=== PATIENT | male | born 1975 | race American Indian/Alaskan Native ===

== ENCOUNTER 2020-09-17 19:47 | Emergency (ER) | payer BC, OTHER ==
[~2020-09-17] VITALS: Ht 175.3 cm; Wt 83.9 kg
[~2020-09-17 19:47] MED LIST: PERCOCET 7.5-31 EACH PO
--- NOTE | 2020-09-18 18:33 | EKG ---
[facility] [address] [facility] [place] [address] Signed Sinus bradycardia Otherwise normal ECG No previous ECGs available Confirmed by ARNEL CHRISTIANSON MD ([id number]) on 09/18/2020 6:33:06 PM Electronically Signed By: ARNEL CHRISTIANSON MD 09/18/20 183 PATIENT NAME: ALVIN NGUYEN Electrocardiogram DATE OF : 77 PHYSICIAN: ARNEL CHRISTIANSON MD REPORT #: [id number] REPORT IS CONFIDENTIAL AND NOT TO BE RELEASED WITHOUT AUTHORIZATION
== END 2020-09-17 23:15 | disposition home or self-care (01) ==
LOC: ED 19:47
DX: S80.02XA Contusion of left knee, initial encounter (principal); R55 Syncope and collapse; W18.30XA Fall on same level, unspecified, initial encounter; Y99.0 Civilian activity done for income or pay
CPT/HCPCS: 73560; 80048; 81001; 85025; 93005; 93010; 99284-25; J7030

== ENCOUNTER 2021-07-16 17:26 | Emergency (ER) | payer BC, OTHER ==
[~2021-07-16] VITALS: Ht 175.3 cm; Wt 81.6 kg
== END 2021-07-17 00:09 | disposition home or self-care (01) ==
LOC: ED 17:26
DX: M79.89 Other specified soft tissue disorders (principal); R59.0 Localized enlarged lymph nodes; Z88.5 Allergy status to narcotic agent
CPT/HCPCS: 36415; 72193; 80053; 81001; 85025; 93926; 93971; 99284-25; Q9967

== ENCOUNTER 2022-03-13 13:56 | Inpatient (IN) | payer BC, OTHER ==
[~2022-03-13] VITALS: Ht 175.3 cm; Wt 80.4 kg
--- NOTE | 2022-03-13 21:00 | NUR ---
PATIENT ARRIVED TO THE FLOOR. PATIENT ASSISTED TO THE BED FROM THE STRETCHER A SBA. PATIENT RATES PAIN AT A 2/10 AND DENIES THE NEED FOR MEDICATION AT THIS TIME. PATIENTS IV INFUSING PER ORDER. PATIENTS VITALS TAKEN AND RECORDED. PATIENTS ADMISSION BEING COMPLETED BY PHARMACEUTICAL SALESPERSON.
--- NOTE | 2022-03-13 21:34 | NUR ---
PATIENT ASSESMENT COMPLETED. PM MEDS GIVEN PER ORDER. FAMILY IN ROOM. PATIENT IS EATING AT THIS TIME. REDNESS OUTLINED ON LEFT UPPER THIGH, AND IS WARM TO THE TOUCH. NO FURTHER NEEDS NOTED. CALL LIGHT IN REACH.
--- NOTE | 2022-03-14 00:15 | NUR ---
PATIENT IS RESTING IN BED WITH EYES CLOSED, RR 16. CALL LIGHT IN REACH. IV INFUSING PER ORDER. PATIENT S/O ASLEEP ON THE COUCH.
--- NOTE | 2022-03-14 02:15 | NUR ---
PATIENTS VITALS TAKEN AND RECORDED. INTAKE AND OUTPUT RECORDED. PATIENTS SCHEDULED MEDS GIVEN PER ORDER. PATIENT DENIES ANY PAIN. NO NEEDS NOTED. CALL LIGHT IN REACH.
--- NOTE | 2022-03-14 04:00 | NUR ---
PATIENT IS RESTING IN BED WITH EYES CLSOED, RR 19. CALL LIGHT IN REACH. S/O ASLEEP ON THE COUCH. IV INFUSING PER ORDER.
--- NOTE | 2022-03-14 04:53 | NUR ---
PATIENT ASSISTED TO THE RESTROOM A 1PA. PATIENT ABLE TO VOID. PATIENT IS BACK IN BED RESTING. PATIENT RATES PAIN IN LEFT THIGH 9/10, PRN MEDS GIVEN PER ORDER. IV INFUSING PER ORDER. PATIENTS VITALS TAKEN AND RECORDED. INTAKE AND OUTPUT RECORDED. FRESH ICE WATER PROVIDED. NO FURTHER NEEDS NOTED.
--- NOTE | 2022-03-14 06:23 | NUR ---
PATIENT RESTING IN BED WITH EYES CLOSED, RR 16. CALL LIGHT IN REACH.
--- NOTE | 2022-03-14 06:55 | NUR ---
BEDSIDE HANDOFF REPORT RECEIVED ROM INSURANCE ATTORNEY RN. PT RESTIN GIN BED. PT DENIES NEEDS AT THIS TIME.
--- NOTE | 2022-03-14 08:00 | NUR ---
PT RESTING IN BED. PT ON ROOM AIR, LUNG SOUNDS CLEAR, DENIES SOB. PT SBA TO BATHROOM, VOIDING QS. IV FLUIDS INFUSING LR AT 75, VANCO INFUSION STARTED. PT WITH REDNESS TO LEFT THIGH, HAS NOT EXTENDED PAST OUTLINE, PT STATES INDURATION ON POSTERIOR THIGH HAS IMPROVED. PT DENIES NEED FOR PAIN MEDICATION AT THIS TIME. BOWEL TONES ACTIVE, DENIES NAUSEA. CMS INTACT, WITHOUT LOWER LEG SWELLING. DISCUSSED PLAN OF CARE FOR THE DAY, PT DENIES OTHER NEEDS AT THIS TIME.
--- NOTE | 2022-03-14 08:44 | NUR ---
Pt in bed this am. Spouse in room, INDP in room. Patient has no other requests at this time. Call light within reach.
--- NOTE | 2022-03-14 10:10 | NUR ---
PT REQUESTING PAIN MEDICATION FRO PAIN 77/10 IN LEFT THIGH, GIVEN MOTRIN AND TYLENOL PER ORDER. PT DENIES OTHER NEEDS AT THIS TIME.
--- NOTE | 2022-03-14 12:36 | NUR ---
MED REC COMPLETE - PT NOT CURRENTLY ON ANY MEDS AT HOME
--- NOTE | 2022-03-14 15:10 | NUR ---
PT REPORTED TO DR. CHRISTIANSON NAUSEA AFTER ANTIBIOTICS, GIVEN 4MG IV ZOFRAN. ENSURE PROVIDED. PT REQUESTING TO SLEEP. PT DENIES OTHER NEEDS AT THIS TIME.
--- NOTE | 2022-03-14 16:18 | NUR ---
IV VANCO INFUSION STARTED. PT STATES PAIN IS TOELRABLE AT THIS TIME. PT DENIES OTHER NEEDS AT THIS TIME.
--- NOTE | 2022-03-14 18:44 | NUR ---
PATIENT GIVEN ONE TYLENOL AND ONE IBUPROFEN FOR 8/20 LEFT THIGH PAIN.
--- NOTE | 2022-03-14 19:48 | NUR ---
RECEIVED REPORT FROM DAY SHIFT RN. PATIENT IS RESTING IN BED WATCHING TV. PATIENT DENIES ANY NEEDS. CALL LIGHT IN REACH.
--- NOTE | 2022-03-14 22:00 | NUR ---
PATIENT ASSESMENT COMPLETED. PATIENTS VITALS TAKEN AND RECORDED. INTAKE AND OUTPUT RECORDED. PATIENT RATES PAIN AT A 1/10 AND DENIES THE NEED FOR INTERVENTION AT THIS TIME. PATIENTS PM MEDS GIVEN PER ORDER. PATIENTS IV FLUSHED AND SL PER ORDER. PATIENT DENIES ANY FURTHER NEEDS. PATIENTS LEFT UPPER THIGH REMAINS RED AND WARM TO THE TOUCH. A NEW OUTLINE MADE WHERE REDNESS HAS SPREAD. CALL LIGHT IN REACH.
--- NOTE | 2022-03-15 00:09 | NUR ---
PATIENT IS RESTING IN BED. PATIENTS SCEDULED ABX INFUSING PER ORDER. PATIENT DENIES ANY PAIN. NO NEEDS NOTED. CALL LIGHT IN REACH.
--- NOTE | 2022-03-15 01:09 | NUR ---
IV ABX COMPLETED INFUSING. PATIENT IS NOW SL PER ORDER. NO NEEDS NOTED. CALL LIGHT IN REACH.
--- NOTE | 2022-03-15 02:09 | NUR ---
PATIENT IS RESTING IN BED WITH EYES CLOSED, RR 16. CALL LIGHT IN REACH.
--- NOTE | 2022-03-15 04:00 | NUR ---
PATIENT IS RESTING IN BED WITH EYES CLOSED, RR 16. CALL LIGHT IN REACH.
--- NOTE | 2022-03-15 05:40 | NUR ---
PATIENTS VITALS TAKEN AND RECORDED. PATIENTS INTAKE AND OUTPUT RECORDED. PATIENT RATES PAIN IN HIS LEFT UPPER THIGH AT A 1/10 AND DENIES THE NEED FOR INTERVENTION AT THIS TIME. AM MEDS GIVEN PER ORDER. NO NEEDS NOTED. CALL LIGHT IN REACH.
--- NOTE | 2022-03-15 05:40 | NUR ---
provided with jello and ice water.
--- NOTE | 2022-03-15 06:28 | NUR ---
PATIENT IS RESTING IN BED WITH EYES CLOSED, RR 17. CALL LIGHT IN REACH.
--- NOTE | 2022-03-15 12:56 | NUR ---
PLANS TO GO HOME WITH HIS LIFE PARTNER. DOSE NOT NEED DME. HAS MONEY FOR FOOD AND MEDICINE.
--- NOTE | 2022-03-15 14:08 | NUR ---
PT IN BED WATCHING MOVIE. PT IV FLUSHED WELL.
--- NOTE | 2022-03-15 15:10 | NUR ---
PT CALLED FOR TYLENOL AND IB FOR A HEADACHE. ORDERED DINNER FROM THE KITCHEN.
--- NOTE | 2022-03-15 22:07 | NUR ---
PT ASSESSMENT COMPLETE. PT STATES THAT PAIN IS WELL CONTROLLED. DENIES THE NEED FOR PRN PAIN MEDCIAION AT THIS TIME. DENIES NASUEA OR SOB. L THIGH WITH REDNESS AND WARMTH. REDNESS WITHIN THE OUTLINED AREA. PT REPORTS HARD LUMP TO INNER L THIGH FEELS SLIGHTLY IMPROVED. CMS INTACT. IV FLUSHED WITH 10 ML NS. WNL. PT REPORTS PAIN AT PERIPHERY OF IV DRESSING. REINFORCED WITH TAPE. EDUCATION RE S/SX OF IV INFILTRATION PROVIDED. PT STATES UNDERSTANDING. PT DENIES FURTHER NEEDS AT THIS TIME. CALL LIGHT IN REACH.
--- NOTE | 2022-03-15 23:46 | NUR ---
ANSWERED CALL LIGHT. WARM BLANKETS PROVIDED.
--- NOTE | 2022-03-16 02:27 | NUR ---
PT ASSESSMENT COMPLETE. PT RESTING IN BED WITH EYES CLOSED. UTILIZED CALL LIGHT FOR IV PUMP ALARMING. WAKES EASILY WHEN NEON SIGN MAKER ENTERS THE ROOM. PT STATES PAIN IS WELL CONTROLLED WHILE NOT MOVING. DENIES NASUEA/SOB. LLE WITH REDNESS THAT REMAINS IN OUTLINED AREA, WARMTH TO L THIGH CONTINUES. CMS INTACT TO ALL EXTREMITIES. IV FLUSHED WITH 10 ML NS. TOLERATED WELL. WNL. PT DENIES FURTHER NEEDS. CALL LIGHT IN REACH. PT'S ASLEEP ON COUCH.
--- NOTE | 2022-03-16 07:05 | NUR ---
bedside report from mateusz rn, pt left leg with cellulitis improving per report from pt and rn, iv sl and call light in reach with no complaints.
--- NOTE | 2022-03-16 07:51 | NUR ---
assessment, pt iv vanco started, coffee to pt, tylenol po for left leg discomfort 08/04 - pt alert/o. denies needs.
--- NOTE | 2022-03-16 10:44 | NUR ---
pt out of shower - s/o at bedside - pt reports feeling better and wanting to go home.
[2022-03-16] MEDS ORDERED: CEPHALEXIN500 MG PO (11:22)
[2022-03-16] MEDS ORDERED: DOXYCYCLINE HY100 MG PO (11:24)
--- NOTE | 2022-03-16 11:30 | NUR ---
Spoke with Rick and his . Pt denies needs and would like to dc to home today. I called and left a message for [facility] and asked they schedule a FU appt for next week and let the pt know. Received a call later. Pt is scheduled for Mar 25 at 1:45 with his pcp Karin Vuong.
== END 2022-03-16 11:50 | disposition home or self-care (01) | DRG 603 ==
LOC: ED 13:56 → MS 20:15
PROVIDERS: ADMIT Internal Medicine; ATTEND Family Medicine
DX: L03.116 Cellulitis of left lower limb (principal); Z20.822 Contact with and (suspected) exposure to COVID-19; A46 Erysipelas; Z88.5 Allergy status to narcotic agent; Z98.52 Vasectomy status; Z98.890 Other specified postprocedural states
CPT/HCPCS: 36415; 80048; 80053; 80202; 83605; 85025; 85610; 85730; 87502; A9270; J0690; J1650; J2405; J3370; J7030; J7060; J7121; U0003

== ENCOUNTER 2023-01-31 11:12 | Inpatient (IN) | payer BC, OTHER ==
[2023-01-31] VITALS (10 sets, daily range): BP systolic 101–113; BP diastolic 61–84
[~2023-01-31] VITALS: Ht 175.3 cm; Wt 81.7 kg
[~2023-01-31 11:12] MED LIST changes: +CEPHALEXIN500 MG PO; +DOXYCYCLINE HY100 MG PO
[2023-01-31 13:19] LABS: BASOPHILS 0.3 % (0-2); EOSINOPHILS 0.4 % (0-6); HEMATOCRIT 41.8 % (35.0-50.0); HEMOGLOBIN 13.7 g/dL (12.0-18.0); LYMPHOCYTES 2.3 % (24-44); MCH 30.1 (27-36); MCHC 32.9 g/dl (30-36); MCV 91.5 fl (81-99); MONOCYTES 3.7 % (0-12); NEUTROPHILS 93.3 % (39-80); PLATELET COUNT 284 K/uL (140-440); RBC 4.56 M/ul (4.3-5.7); RDW 14.2 (10.5-15.0)
[2023-01-31 13:33] LABS: ALBUMIN/GLOBULIN RATIO 1.38 (1.1-2.4); ANION GAP 14.4 (7-21); BILIRUBIN, TOTAL 0.6 ng/dL (0.2-1.0); BUN/CREATININE RATIO 13.13 (6.0-28.6); CALCIUM 8.7 mg/dL (8.5-10.1); CREATININE, SERUM 0.99 mg/dL (0.70-1.30); POTASSIUM 3.4 mmol/L (3.5-5.1); PROTEIN, TOTAL 6.9 g/dL (6.4-8.2)
[2023-01-31 13:36] LABS: LACTIC ACID, BLOOD 1.2 mmol/L (0.4-2.0)
[2023-01-31 13:43] LABS: INFLUENZA B NAA NEGATIVE (NEGATIVE); RESPIRATORY SYNCYTIAL VIR NAA NEGATIVE (NEGATIVE)
[2023-01-31 16:10] LABS: BASOPHILS 0.2 % (0-2); EOSINOPHILS 0.2 % (0-6); HEMATOCRIT 38.2 % (35.0-50.0); HEMOGLOBIN 12.7 g/dL (12.0-18.0); LYMPHOCYTES 2.1 % (24-44); MCH 30.5 (27-36); MCHC 33.3 g/dl (30-36); MCV 91.7 fl (81-99); MONOCYTES 1.4 % (0-12); NEUTROPHILS 96.1 % (39-80); PLATELET COUNT 251 K/uL (140-440); RBC 4.16 M/ul (4.3-5.7); RDW 14.4 (10.5-15.0)
[2023-01-31 16:17] LABS: ANION GAP 14.2 (7-21); BUN/CREATININE RATIO 11.65 (6.0-28.6); CALCIUM 7.9 mg/dL (8.5-10.1); CREATININE, SERUM 1.03 mg/dL (0.70-1.30); POTASSIUM 3.2 mmol/L (3.5-5.1)
[2023-02-01] VITALS (17 sets, daily range): BP systolic 89–117; BP diastolic 57–79
[2023-02-01 05:24] LABS: BASOPHILS 0.2 % (0-2); HEMATOCRIT 37.3 % (35.0-50.0); HEMOGLOBIN 12.6 g/dL (12.0-18.0); LYMPHOCYTES 2.2 % (24-44); MCH 30.6 (27-36); MCHC 33.9 g/dl (30-36); MCV 90.2 fl (81-99); NEUTROPHILS 95.6 % (39-80); PLATELET COUNT 224 K/uL (140-440); RBC 4.13 M/ul (4.3-5.7); RDW 14.3 (10.5-15.0)
[2023-02-01 05:33] LABS: ANION GAP 13.1 (7-21); BUN/CREATININE RATIO 10.34 (6.0-28.6); CALCIUM 8.5 mg/dL (8.5-10.1); CREATININE, SERUM 0.87 mg/dL (0.70-1.30); POTASSIUM 4.1 mmol/L (3.5-5.1)
[2023-02-01 05:38] LABS: BANDS, MANUAL DIFF 40; LYMPHOCYTES, MANUAL DIFF 2; NEUTROPHILS, MANUAL DIFF 58
[2023-02-02] VITALS (9 sets, daily range): BP systolic 96–127; BP diastolic 61–80
[2023-02-02 06:16] LABS: BASOPHILS 0.3 % (0-2); EOSINOPHILS 0.6 % (0-6); HEMATOCRIT 35.6 % (35.0-50.0); LYMPHOCYTES 5.2 % (24-44); MCH 30.6 (27-36); MCHC 33.9 g/dl (30-36); MCV 90.5 fl (81-99); NEUTROPHILS 89.9 % (39-80); PLATELET COUNT 223 K/uL (140-440); RBC 3.93 M/ul (4.3-5.7); RDW 14.8 (10.5-15.0)
[2023-02-02 06:30] LABS: ALBUMIN 2.5 g/dL (3.4-5.0); ALBUMIN/GLOBULIN RATIO 0.74 (1.1-2.4); ANION GAP 15.1 (7-21); BILIRUBIN, TOTAL 0.3 ng/dL (0.2-1.0); BUN/CREATININE RATIO 6.66 (6.0-28.6); CALCIUM 8.3 mg/dL (8.5-10.1); CREATININE, SERUM 0.9 mg/dL (0.70-1.30); MAGNESIUM 1.8 mg/dL (1.8-2.4); POTASSIUM 4.1 mmol/L (3.5-5.1); PROTEIN, TOTAL 5.9 g/dL (6.4-8.2)
[2023-02-03 05:13] LABS: BASOPHILS 0.5 % (0-2); EOSINOPHILS 2.7 % (0-6); HEMATOCRIT 37.2 % (35.0-50.0); HEMOGLOBIN 12.5 g/dL (12.0-18.0); LYMPHOCYTES 9.9 % (24-44); MCH 30.5 (27-36); MCHC 33.6 g/dl (30-36); MCV 90.6 fl (81-99); MONOCYTES 5.5 % (0-12); NEUTROPHILS 81.4 % (39-80); PLATELET COUNT 243 K/uL (140-440); RBC 4.11 M/ul (4.3-5.7); RDW 14.5 (10.5-15.0)
[2023-02-03 05:21] LABS: ANION GAP 14.1 (7-21); BUN/CREATININE RATIO 8.64 (6.0-28.6); CALCIUM 8.6 mg/dL (8.5-10.1); CREATININE, SERUM 0.81 mg/dL (0.70-1.30); POTASSIUM 4.1 mmol/L (3.5-5.1)
[2023-02-03 06:44] VITALS: BP 115/72
[2023-02-03] MEDS ORDERED: AMOX TR-K CLV1 EAC1 PO (09:20)
[2023-02-03 10:18] VITALS: BP 112/73
== END 2023-02-03 10:20 | disposition home or self-care (01) | DRG 872 ==
LOC: ED 11:12 → CCU 14:11 → MS 02-02 15:15
PROVIDERS: Emergency Medicine; ADMIT Internal Medicine; ATTEND Internal Medicine
DX: A41.9 Sepsis, unspecified organism (principal); L03.116 Cellulitis of left lower limb; E87.6 Hypokalemia; I95.9 Hypotension, unspecified; Z98.890 Other specified postprocedural states; Z98.52 Vasectomy status; Z88.5 Allergy status to narcotic agent; Z79.2 Long term (current) use of antibiotics; Z11.52 Encounter for screening for COVID-19
CPT/HCPCS: 36415; 73721; 74177; 80048; 80053; 83605; 83735; 85007; 85025; 85060; 87040; 87502; 93926; 93971; A9270; C9803; J0612; J0692; J0878; J1170; J1650; J2185; J2405; J3370; J3475; J3480; J3490; J7030; J7040; J7060; Q9967; U0002

== ENCOUNTER 2024-05-15 06:45 | Day surgery (SDC) | payer BC, OTHER ==
[~2024-05-15] VITALS: Ht 175.3 cm; Wt 80.3 kg
[~2024-05-15 06:45] MED LIST changes: +AMOX TR-K CLV1 EAC1 PO; +IBLOOD GLUCOSE TEST STRIP 1 EA TEST VI PRN; +LACTATED RINGER'S 1,000 ML IV SCH; +LIDOCAINE HCL 1% 5 ML SDV INJ ONE; +LIPITOR10 MG PO; +MIDAZOLAM HCL 5 MG/5 ML VIAL IV PRN; +MIDAZOLAM HCL 5 MG/5 ML VIAL ONE; +VITAMIN D3125 MC1 PO; +fentaNYL citrate 100 MCG/2 ML VIAL IV PRN; +fentaNYL citrate 100 MCG/2 ML VIAL ONE
[2024-05-15 07:00] VITALS: BP 110/68
[2024-05-15] MEDS ORDERED: LIDOCAINE HCL 1% 5 ML SDV INJ ONE (07:00)
[2024-05-15] MEDS ORDERED: IBLOOD GLUCOSE TEST STRIP 1 EA TEST VI PRN (07:00)
[2024-05-15] MEDS ORDERED: LACTATED RINGER'S 1,000 ML IV SCH (07:00)
--- NOTE | 2024-05-15 07:24 | NUR ---
PT NOT AVAILABLE FOR VISIT. PROVIDED PRAYER.
--- NOTE | 2024-05-15 08:08 | NUR ---
05/15/24 0808 Kim Marrero 07Sita PT ARRIVED TO PACU ON 2L VIA NC, PT ASLEEP AND RESP EVEN AND UNLABORED. VSS. 0806 O2 TURNED OFF.
[2024-05-15 08:45] VITALS: BP 100/72
--- NOTE | 2024-05-15 16:06 | OR ---
[facility] [address] [place], [place] [address] Signed DATE OF OPERATION: 05/15/2024 SURGEON: Edwin Linares MD PREOPERATIVE DIAGNOSIS: Screening. POSTOPERATIVE DIAGNOSES: 1. 5 mm polyp at 8 cm in rectum. 2. Minimal internal hemorrhoids. PROCEDURE: Colonoscopy with hot biopsy. ESTIMATED BLOOD LOSS: None. INDICATIONS: Jules is a 48-year-old gentleman, asked to see me for his initial screening colonoscopy. He said he has no lower GI complaints. There is no family history of colon cancer or polyps. In the office, I gave him a pamphlet on colonoscopy. He understands the nature of the test. There is risk including, but not limited to gas bloating, crampy abdominal pain, bleeding, perforation requiring surgery, and missed diagnosis. We also reviewed the written instructions for the bowel prep line by line. He also understands the need for IV conscious sedation. He told us this morning that he smokes marijuana every day. In fact, he smokes marijuana before he came in this morning. He understands that the Versed and fentanyl may not be strong enough to put him asleep. We would have to reschedule with an anesthesia provider on propofol infusion. He understands an adult person has to take him home afterwards. He had expressed understanding and wished to proceed. DESCRIPTION OF PROCEDURE: Jules was taken into our endoscopy suite and placed in the left lateral decubitus position. He was given 8 mg of Versed and 150 mcg of fentanyl. A digital rectal exam was performed. This was unremarkable. There were no external hemorrhoids. He had good sphincter tone. There were no masses. His prostate is starting to get a little enlarged and indurated. The adult colonoscope was introduced and advanced all around into the cecum under direct visualization of the camera without difficulty. His prep was quite excellent. We could easily see the appendiceal orifice and the ileocecal valve. The scope was slowly withdrawn. We took several pictures throughout for Electronically Signed By: EDWIN LINARES MD 05/15/24 1606 PATIENT NAME: ALVIN NGUYEN OPERATIVE REPORT DATE OF : 77 REPORT #: [id number] PHYSICIAN: EDWIN LINARES MD PCP: KARIN PEREZ PAC REPORT IS CONFIDENTIAL AND NOT TO BE RELEASED WITHOUT AUTHORIZATION [facility] [address] [place], [place] [address] Signed photodocumentation. There was no diverticulosis. We found one polyp at 8 cm in the rectum. It was about 5 mm. We removed it completely with the help of hot biopsy forceps. Upon retroflexion of the scope, we could see just minimal internal hemorrhoid columns. After this, the gas was suctioned out and the colonoscope removed. Jules tolerated the procedure quite well. RECOMMENDATIONS: I will see Jules back in my office in 7 to 14 days to review his results. MD RAMONITA Shahid/ARNAVL /[id number] cc: Karin Linares MD Copies: KARIN PEREZ ANDREW L MD ~ Electronically Signed By: EDWIN LINARES MD 05/15/24 1606 PATIENT NAME: ALVIN NGUYEN OPERATIVE REPORT DATE OF : 77 REPORT #: [id number] PHYSICIAN: EDWIN LINARES MD PCP: KARIN PEREZ REPORT IS CONFIDENTIAL AND NOT TO BE RELEASED WITHOUT AUTHORIZATION
--- NOTE | 2024-05-17 09:05 | PATH ---
[facility] [address] [place], [place] [address] Signed SPECIMEN(S): A RECTUM AT 8 CM SPECIMEN SOURCE: A. RECTUM AT 8 CM CLINICAL HISTORY: Colon screening FINAL PATHOLOGIC DIAGNOSIS: Rectum, 8 cm, polypectomy: - Tubular adenoma BRP MICROSCOPIC EXAMINATION: Histologic sections of all submitted blocks are examined by light microscopy. These findings, together with the gross examination, support the pathologic diagnosis. GROSS DESCRIPTION: The specimen, labeled and designated "Ginger rectum biopsy at 8 cm," is received in formalin and consists of two gould soft tissue fragments, ranging from 0.2 cm. Entirely submitted in (A1). JS (under the direct supervision of a pathologist) The Gross Description was prepared using a voice recognition system. The report was reviewed for accuracy; however, sound-alike word errors, addition and/or deletions may occur. If there is any question about this report, please contact Client Services. ADDITIONAL NOTES: Immunohistochemical and/or in situ hybridization studies if performed in this case included appropriate positive controls that reacted as expected. This test was developed and its performance characteristics determined by [employer]. It has not been cleared or approved by the U.S. Food and Drug Administration. The FDA has determined that such clearance or approval is not necessary. This test is used for clinical purposes. It should not be regarded as investigational or for research. [facility] is certified under the Clinical Laboratory Improvement Amendments of 1988 (CLIA) as qualified to perform high complexity clinical laboratory testing. PATIENT NAME: QUALVIN LOU[facility] PATHOLOGY DATE OF : 77 REPORT #: [id number] PHYSICIAN: NATACHA CARRIZALES PCP: CARLOS ENRIQUE PEREZ PAC REPORT IS CONFIDENTIAL AND NOT TO BE RELEASED WITHOUT AUTHORIZATION [facility] [address], [place] [address] Signed PERFORMING LABORATORY: Technical component was performed [place] [address] (CLIA# [id number]). Professional interpretation was performed by [facility] [place] [address] (CLIA#: [id number]). Diagnostician: Raffaele Soto MD Pathologist Electronically Signed 05/17/2024 Copies: ~ PATIENT NAME: ALVIN NGUYEN PATHOLOGY DATE OF : [birth year] REPORT #: [id number] PHYSICIAN: NATACHA CARRIZALES PCP: CARLOS ENRIQUE PEREZ PAC REPORT IS CONFIDENTIAL AND NOT TO BE RELEASED WITHOUT AUTHORIZATION
== END 2024-05-15 08:54 | disposition home or self-care (01) ==
LOC: DS 06:45
PROVIDERS: ATTEND Colon & Rectal Surgery
PROC: 0DBP8ZZ Excision of Rectum, Via Natural or Artificial Opening Endoscopic (ICD-10-PCS; principal; 2024-05-15 07:30)
DX: Z12.11 Encounter for screening for malignant neoplasm of colon (principal); D12.8 Benign neoplasm of rectum; K64.8 Other hemorrhoids; R73.03 Prediabetes; E78.5 Hyperlipidemia, unspecified
CPT/HCPCS: 99153; G0500; J2250; J3010; J7121

== ENCOUNTER 2024-12-25 18:20 | Emergency (ER) | payer BC, OTHER ==
[~2024-12-25] VITALS: Ht 175.3 cm; Wt 78.9 kg
[~2024-12-25 18:20] MED LIST changes: -IBLOOD GLUCOSE TEST STRIP 1 EA TEST VI PRN; -LACTATED RINGER'S 1,000 ML IV SCH; -LIDOCAINE HCL 1% 5 ML SDV INJ ONE; -MIDAZOLAM HCL 5 MG/5 ML VIAL IV PRN; -MIDAZOLAM HCL 5 MG/5 ML VIAL ONE; -fentaNYL citrate 100 MCG/2 ML VIAL IV PRN; -fentaNYL citrate 100 MCG/2 ML VIAL ONE
[2024-12-25] MEDS ORDERED: FAMOTIDINE 20 MG/ 2 ML VIAL IV ONE (20:45)
[2024-12-25] MEDS ORDERED: KETOROLAC TROMETHAMINE 30 MG/ML VIAL IV ONE (20:45)
[2024-12-25] MEDS ORDERED: LACTATED RINGER'S 1,000 ML IV ONE (20:45)
[2024-12-25 21:03] LABS: BASOPHILS 0.2 % (0.2-1.2); EOSINOPHILS 0.1 % (0.8-7.0); LYMPHOCYTES 2.7 % (21.8-53.1); MCH 30.2 PG (25.7-32.2); MCHC 33.9 g/dL (32.3-36.5); MCV 89.2 fL (79.0-92.2); MONOCYTES 4.4 % (5.3-12.2); NEUTROPHILS 91.6 % (34.0-67.9); RBC 4.73 M/uL (4.63-6.08)
[2024-12-25 21:15] LABS: SMEAR REVIEW BLOOD SEE COMMENTS
[2024-12-25 21:19] LABS: ALT (SGPT) 28.0 U/L (14-59); AST (SGOT) 20.0 U/L (15-37); GLOMERULAR FILTRATION RATE,EST 107.0 mL/min (>60); PROTEIN, TOTAL 7.2 g/dL (6.4-8.2); UREA NITROGEN 12.0 mg/dL (7-18)
[2024-12-25 21:22] LABS: BLOOD/HGB, URINE NEGATIVE (Negative); KETONE, URINE NEGATIVE (Negative); LEUK ESTERASE, URINE NEGATIVE (negative); NITRITE, URINE NEGATIVE (negative)
[2024-12-25 21:37] LABS: AMPHETAMINES, URINE NEGATIVE (NEGATIVE); BARBITURATES, URINE NEGATIVE (NEGATIVE); BENZODIAZEPINE, URINE NEGATIVE (NEGATIVE); CANNABINOID, URINE POSITIVE (NEGATIVE); COCAINE, URINE NEGATIVE (NEGATIVE); ECSTASY, URINE NEGATIVE (NEGATIVE); FENTANYL, URINE NEGATIVE (NEGATIVE); METHADONE, URINE NEGATIVE (NEGATIVE); OPIATES, URINE NEGATIVE (NEGATIVE); OXYCODONE, URINE NEGATIVE (NEGATIVE); PHENCYCLIDINE, URINE NEGATIVE (NEGATIVE)
[2024-12-26 00:32] LABS: LACTIC ACID, BLOOD 2.1 mmol/L (0.4-2.0)
[2024-12-26] MEDS ORDERED: LACTATED RINGER'S 1,000 ML IV ONE (00:45)
[2024-12-26] MEDS ORDERED: ACETAMINOPHEN 500 MG TAB PO ONE (02:15)
[2024-12-26 02:35] LABS: LACTIC ACID, BLOOD 1.9 mmol/L (0.4-2.0)
[2024-12-26] MEDS ORDERED: AMOX TR-K CLV1 EAC1 PO (03:04)
[2024-12-26 04:02] VITALS: BP 90/58
== END 2024-12-26 04:00 | disposition home or self-care (01) ==
LOC: ED 18:20
PROVIDERS: Internal Medicine
DX: L03.116 Cellulitis of left lower limb (principal); R25.2 Cramp and spasm; Z88.2 Allergy status to sulfonamides; Z88.5 Allergy status to narcotic agent
CPT/HCPCS: 36415; 80053; 80307; 81003; 82550; 83605; 85025; 85060; 87040; 96365; 96375; 99283-25; A9270; J0696; J1885; J2405; J7121